=== PATIENT | female | born 1980 | race Caucasian/White ===

== ENCOUNTER 2016-12-09 22:49 | Emergency (ER) | payer MEDICAID ==
[2016-12-10 01:17] VITALS: BP 127/74
== END 2016-12-10 01:17 | disposition home or self-care (01) ==
LOC: ED 22:49
DX: G44.209 Tension-type headache, unspecified, not intractable (principal); R11.2 Nausea with vomiting, unspecified; Z79.1 Long term (current) use of non-steroidal anti-inflammatories (NSAID)
CPT/HCPCS: J0780; J1885

== ENCOUNTER 2019-05-15 04:43 | Emergency (ER) | payer SELFPAY ==
[~2019-05-15] VITALS: Ht 149.9 cm; Wt 71.0 kg
[2019-05-15 04:46] VITALS: Ht 149.9 cm; Wt 71.0 kg
[2019-05-15 05:35] VITALS: BP 178/119
== END 2019-05-15 05:35 | disposition home or self-care (01) ==
LOC: ED 04:43
DX: L29.9 Pruritus, unspecified (principal)